=== PATIENT | male | born 1980 ===

== ENCOUNTER 2017-08-13 14:34 | Inpatient (IN) | payer MEDICAID, OTHER ==
--- NOTE | 2017-08-13 16:51 | RAD ---
HISTORY: psych COMPARISON: 01/08/2013 TECHNIQUE: Chest PA and lateral FINDINGS: LUNGS: No active pulmonary disease. PLEURA: No significant pleural effusion identified. No pneumothorax apparent. CARDIOVASCULAR: Normal. OSSEOUS STRUCTURES: No significant abnormalities. VISUALIZED UPPER ABDOMEN: Normal. OTHER FINDINGS: None. IMPRESSION: No active disease. No interval pathology noted
--- NOTE | 2017-08-13 18:44 | ED PDOC ---
HPI: Psych/Substance Abuse Time Seen by Provider: 08/13/17 16:20 Chief Complaint (Nursing): Psychiatric Evaluation Chief Complaint (Provider): Paranoid Schizophrenia ED Caveat: Psychotic Past Medical History Vital Signs: Last Vital Signs Temp 98.0 F 08/13/17 14:38 Pulse 93 H 08/13/17 14:38 Resp 16 08/13/17 14:38 BP 123/76 08/13/17 14:38 Pulse Ox 96 08/13/17 14:38 - Family History Family History: States: No Known Family Hx - Home Medications Home Medications: Ambulatory Orders Medication Instructions Recorded Benztropine [Cogentin] 2 mg PO Q12 08/13/17 Divalproex [Depakote DR (*BID*)] 750 mg PO Q12 08/13/17 Levothyroxine [Synthroid] 50 mcg PO DAILY 08/13/17 Risperidone [Risperdal] 3 mg PO Q12 08/13/17 cloZAPine [Clozaril] 300 mg PO Q12 08/13/17 levETIRAcetam [Keppra] 500 mg PO Q12 08/13/17 - Allergies Allergies/Adverse Reactions: Allergies Allergy/AdvReac Type Severity Reaction Status Date / Time No Known Allergies Allergy Verified 08/13/17 14:38 Review of Systems Psych: Negative for: Suicidal ideation (no homicidal ideation) Physical Exam - Reviewed Nursing Documentation Reviewed: Yes Vital Signs Reviewed: Yes - Physical Exam Appears: Positive for: Well, No Acute Distress Cardiovascular/Chest: Positive for: Chest Non Tender. Negative for: Edema, Gallop, Bradycardia, Tachycardia Respiratory: Positive for: Normal Breath Sounds. Negative for: Accessory Muscle Use, Crackles, Rales, Rhonchi, Stridor, Wheezing Pulses-Carotid (L): 2+ Pulses-Carotid (R): 2+ Pulses-Radial (L): 2+ Pulses-Radial (R): 2+ Gastrointestinal/Abdominal: Positive for: Normal Exam, Bowel Sounds, Soft. Negative for: Tenderness - Laboratory Results Result Diagrams: 08/19/17 08:36 08/13/17 18:24 - ECG O2 Sat by Pulse Oximetry: 96 Medical Decision Making Medical Decision Making: medical clearance protocol ordered prior to psych / crisis counseling CXR: (-) LABS: no findings of clinical significance Valproic Acid: (-) LOW Disposition - Clinical Impression Clinical Impression: Psychosis - Disposition Disposition Time: 09:00 Condition: GUARDED
[2017-08-13 18:49] LABS: BASO % 0.4 % (0.0-2.0); EOS # 0.1 K/uL (0.0-0.7); EOS % 1.4 % (0.0-4.0); HEMOGLOBIN 16.8 g/dL (12.0-18.0); LYMPH # 2.2 K/uL (1.0-4.3); LYMPH % 24.8 % (20.0-40.0); MEAN CELL VOLUME 85.9 fl (80.0-94.0); MEAN CORPUSCULAR HEMOGLOBIN 29.4 pg (27.0-31.0); MEAN CORPUSCULAR HGB CONC 34.2 g/dL (33.0-37.0); MEAN PLATELET VOLUME 10.4 fl (7.2-11.7); MONO # 0.7 K/uL (0.0-0.8); MONO % 7.5 % (0.0-10.0); NEUT # 5.9 K/uL (1.8-7.0); NEUT % 65.9 % (50.0-75.0); NRBC % 0.1 % (0.0-0.0); RBC 5.72 Mil/uL (4.40-5.90); RED CELL DISTRIBUTION WIDTH 13.5 % (11.5-14.5); WHITE BLOOD COUNT 8.9 K/uL (4.8-10.8)
[2017-08-13 18:51] LABS: ALB/GLOB RATIO 1.6 (1.0-2.1); ALBUMIN 4.6 g/dL (3.5-5.0); ALT/SGPT 74 U/L (21-72); AST/SGOT 50 U/L (17-59); BLOOD UREA NITROGEN 15 mg/dl (9-20); CALCIUM 9.9 mg/dL (8.4-10.2); GFR AFRICAN-AMERICAN > 60; GFR NON-AFRICAN AMERICAN > 60
[2017-08-13 19:42] LABS: URINE BACTERIA RARE (<OCC); URINE BILIRUBIN NEGATIVE (NEGATIVE); URINE BLOOD NEGATIVE (NEGATIVE); URINE CLARITY CLOUDY (Clear); URINE COLOR YELLOW (YELLOW); URINE GLUCOSE (UA) NEG (Normal); URINE LEUKOCYTE ESTERASE NEG Leu/uL (Negative); URINE PROTEIN NEGATIVE (NEGATIVE); URINE UROBILINOGEN 0.2-1.0 mg/dL (0.2-1.0)
[2017-08-13 20:04] LABS: BARBITURATES, UR NEGATIVE (NEGATIVE); BENZODIAZEPINES, UR NEGATIVE (NEGATIVE); OPIATES, UR NEGATIVE (NEGATIVE); PHENCYCLIDINE, UR NEGATIVE (NEGATIVE)
[2017-08-13] MEDS ORDERED: DiphenhydrAMINE 50 mg/ml Inj IM PRN (20:55)
[2017-08-13] MEDS ORDERED: Magnesium Hydroxide Susp 30 ml UD PO PRN (20:55)
--- NOTE | 2017-08-13 21:35 | PCM.BM ---
<Carolyn Boggs - Last Filed: 08/13/17 21:33> Treatment Plan Problems - Problems identified on initial assessmt Delusions Date Initiated: 08/13/17 Time Initiated: 21:33 Assessment reference: NA Status: Active Thought Process Date Initiated: 08/13/17 Time Initiated: 21:33 Assessment reference: NA Status: Active Auditory Hallucinations Date Initiated: 08/13/17 Time Initiated: 21:34 Assessment reference: NA Status: Active Treatment assets and liabiliti Patient Assests: cooperative, self-reliant, ADL independent, negotiates basic needs Patient Liabilities: poor support system, medical problems - Milieu Protocol Maintain good personal hygiene: daily Remind patient to perform daily oral care , daily Assist patient to perform ADL's, every shift Encourage regular showers Conduct patient checks and document Observation sheet: Q15 minutes Maintain personal safety: every shift Educate patient to report safety concerns to staff, every shift Monitor environment for contraband/sharps Medication safety: Monitor for expected outcome, potential side effects: every shift, Assess barriers to learning: every shift, Assess readiness for medication education: every shift <FredericJudit - Last Filed: 08/14/17 14:52> Treatment assets and liabiliti Patient Assests: adapts well, cooperative, self-reliant, ADL independent, good support system, negotiates basic needs Patient Liabilities: medical problems, other (chronic SD, hx of attempts) Family Contact Family involvement: Family/SO is involved Family contact: Patient agrees to contact, Other (real estate underwriter attempting to obtain family contact number) Family contact name: Benita Leonard(mother) ([phone]) Family contacted how many times per week?: 2 Family contact comment: French [employer] Folder placed call to patients mother, Benita Leonard ) to discuss precursors to pts admission and collect further collateral. Number inactive. The number above retrieved from medical records, as pt is unable to provide real estate underwriter with contact information for family. French [employer] Folder to continue attempts to contact pts family supports. - Outside Agency Agency 1 Care involvment: Following patient during stay, Information-sharing, Other Agency contact name: [facility] [place] [facility] Agency contact number: ([phone]) Agency 2 Care involvment: Following patient during stay, Information-sharing Agency contact name: [facility] Agency contact number: ([phone]) - Goals for Treatment Patient goals for treatment: Patient to continue stabilization on 3NP through medication management and group/supportive therapy. Patient to be encouraged to attend groups regularly to promote self-awareness, compliance, and improve insight, coping skills and self-esteem. Patient to be provided with referral for appropriate level of aftercare to reduce risk of future hospitalizations and ensure safety in the community. Discharge/Continuing Care - Education Needs Education Needs: Family Medication, Family Community resources, Family Aftercare Safety Plan, Patient Medication, Patient Coping Skills, Patient Anger Management skills, Patient Community resources, Patient Aftercare Safety Plan - Discharge Discharge Criteria: Tolerates medication w/o severe side effects, Free of Suicidal thoughts, Free of paranoid thoughts, Free of agitation, Normal sleep pattern, Ability to care for self, Reduction of target symptoms Discharge to:: Home, With Family, Other ([facility] [place]) <Jose Morales - Last Filed: 08/15/17 11:58> Discharge/Continuing Care - Additional Comments 08/15/17 11:58 Pt's speech was soft, slow and he appeared to be experiencing thought blocking. Pt reported he was feeling better and his sleep has improved. Pt denied allowing real estate underwriter to contact My at [facility] or any other staff at [facility]. Pt denied side-effects at this time. Dr. Villarreal explained that she would be raising pt's Clozaril. Pt then expressed that he hears his father's voice and other family members because he is a medium. - Treatment Team Participation Discussed with Family/SO: No Was Patient/Family/SO present at Treatment Team Meeting: Yes <Lexy Villarreal - Last Filed: 08/15/17 16:15> - Diagnosis (1) Psychosis Status: Acute Interventions: pharmacotherapy 08/15/17 16:14
[2017-08-13] MEDS: Divalproex 250 mg DR(BID formulation) PO SCH (22:25)
[2017-08-14] MEDS: Alum-Mag Hydrox-Simethicone Susp (30 mL) PO PRN ×2 (03:59→09:10)
[2017-08-14] MEDS: Levothyroxine 50 MCG TAB PO SCH (06:39)
[2017-08-14 07:21] LABS: T4 9.36 ug/dl (5.5-11.0)
[2017-08-14] MEDS: Divalproex 250 mg DR(BID formulation) PO SCH ×2 (09:09→17:27)
--- NOTE | 2017-08-14 11:32 | CARD ---
APPROVED REPORT EKG Measurement Heart [id number] <Conclusion> Normal sinus rhythm Nonspecific T wave abnormality Abnormal ECG
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
--- NOTE | 2017-08-14 15:00 | CP.PCM.CON ---
History of Present Illness - History of Present Illness History of Present Illness: 37 yo male with history of Schizophrenia admitted to psyche unit because of paranoia. Review of Systems - Review of Systems All systems: reviewed and no additional remarkable complaints except (aside from those mentioned above, 14 point system review were negative by me) Past Patient History - Past Social History Smoking Status: Never Smoked Alcohol: None Drugs: Denies - CARDIAC Hx Cardiac Disorders: Yes Hx Hypercholesterolemia: Yes Hx Hypertension: No - PULMONARY Hx Respiratory Disorders: No Hx Tuberculosis: No - NEUROLOGICAL Hx Neurological Disorder: Yes HX Cerebrovascular Accident: No Hx Seizures: Yes (epilepsy) - HEENT Hx HEENT Problems: No - RENAL Hx Chronic Kidney Disease: No - ENDOCRINE/METABOLIC Hx Endocrine Disorders: Yes Hx Hypothyroidism: Yes - HEMATOLOGICAL/ONCOLOGICAL Hx Blood Disorders: No Hx Cancer: No Hx Human Immunodeficiency Virus (HIV): No - INTEGUMENTARY Hx Dermatological Problems: No - MUSCULOSKELETAL/RHEUMATOLOGICAL Hx Musculoskeletal Disorders: No - GASTROINTESTINAL Hx Gastrointestinal Disorders: No - GENITOURINARY/GYNECOLOGICAL Hx Genitourinary Disorders: No Hx Sexually Transmitted Disorders: No - PSYCHIATRIC Hx Psychophysiologic Disorder: Yes - SURGICAL HISTORY Hx Surgeries: Yes Other/Comment: tendon repair and alleged brain surgery - ANESTHESIA Hx Anesthesia: Yes Hx Anesthesia Reactions: No Hx Malignant Hyperthermia: No Has any member of the family had a problem w/ anesthesia?: No Meds Allergies/Adverse Reactions: Allergies Allergy/AdvReac Type Severity Reaction Status Date / Time No Known Allergies Allergy Verified 08/13/17 14:38 - Medications Medications: Current Medications Acetaminophen (Tylenol 325mg Tab) 650 mg PO Q4 PRN PRN Reason: Pain, moderate (4-7) Al Hydrox/Mg Hydrox/Simethicone (Maalox Plus 30 Ml) 30 ml PO Q4 PRN PRN Reason: Dyspepsia Last Admin: 08/14/17 09:10 Dose: 30 ml Atorvastatin Calcium (Lipitor) 10 mg PO HS [facility] Last Admin: 08/13/17 22:26 Dose: 10 mg Benztropine Mesylate (Cogentin) 2 mg PO BID [facility] Last Admin: 08/14/17 09:10 Dose: 2 mg Clozapine (Clozaril) 300 mg PO DAILY [facility] Last Admin: 08/14/17 10:58 Dose: 300 mg Clozapine (Clozaril) 50 mg PO HS [facility] Diphenhydramine HCl (Benadryl) 50 mg IM Q6 PRN PRN Reason: Extrapyramidal S/S Unable PO Diphenhydramine HCl (Benadryl) 50 mg PO Q6 PRN PRN Reason: Extrapyramidal Symptoms Diphenhydramine HCl (Benadryl) 50 mg PO HS PRN PRN Reason: Sleep Last Admin: 08/13/17 23:19 Dose: 50 mg Divalproex Sodium (Depakote Dr(*Bid*)) 750 mg PO BID [facility] Last Admin: 08/14/17 09:09 Dose: 750 mg Docusate Sodium (Colace) 100 mg PO BID [facility] Last Admin: 08/14/17 09:10 Dose: 100 mg Haloperidol (Haldol) 5 mg PO Q4 PRN PRN Reason: Agitation Haloperidol Lactate (Haldol) 5 mg IM Q4 PRN PRN Reason: Agitation, Unable to Take PO Levetiracetam (Keppra) 500 mg PO BID [facility] Last Admin: 08/14/17 09:10 Dose: 500 mg Levothyroxine Sodium (Synthroid) 50 mcg PO DAILY@0630 [facility] Last Admin: 08/14/17 06:39 Dose: 50 mcg Lorazepam (Ativan) 2 mg IM Q4 PRN PRN Reason: Anxiety/Agitation,Unable PO Lorazepam (Ativan) 1 mg PO Q4 PRN PRN Reason: Anxiety/Agitation Magnesium Hydroxide (Milk Of Magnesia) 30 ml PO HS PRN PRN Reason: Constipation Risperidone (Risperdal Tab) 3 mg PO BID [facility] Last Admin: 08/14/17 09:10 Dose: 3 mg Physical Exam - Constitutional Appears: No Acute Distress, Other (tremelous) - Head Exam Head Exam: ATRAUMATIC - Eye Exam Eye Exam: absent: Scleral icterus - ENT Exam ENT Exam: Mucous Membranes Moist - Neck Exam Neck exam: Negative for: Meningismus - Respiratory Exam Respiratory Exam: absent: Rales, Wheezes, Respiratory Distress - Cardiovascular Exam Cardiovascular Exam: REGULAR RHYTHM, +S1, +S2 - GI/Abdominal Exam GI & Abdominal Exam: Soft. absent: Tenderness - Rectal Exam Rectal Exam: Deferred - Neurological Exam Neurological exam: Alert - Psychiatric Exam Psychiatric exam: Normal Affect - Skin Skin Exam: Dry, Intact Results - Vital Signs Recent Vital Signs: Last Vital Signs Temp 96.9 F L 08/14/17 09:00 Pulse 77 08/14/17 09:00 Resp 18 08/14/17 09:00 BP 111/75 08/14/17 09:00 Pulse Ox 99 08/13/17 20:18 - Labs Result Diagrams: 08/13/17 18:24 08/13/17 18:24 Labs: Laboratory Results - last 24 hr 08/13/17 08/13/17 08/13/17 18:24 18:24 19:10 WBC 8.9 RBC 5.72 Hgb 16.8 Hct 49.1 MCV 85.9 MCH 29.4 MCHC 34.2 RDW 13.5 Plt Count 209 MPV 10.4 Neut % (Auto) 65.9 Lymph % (Auto) 24.8 Whitman % (Auto) 7.5 Eos % (Auto) 1.4 Baso % (Auto) 0.4 Neut # (Auto) 5.9 Lymph # (Auto) 2.2 Whitman # (Auto) 0.7 Eos # (Auto) 0.1 Baso # (Auto) 0.0 Sodium 145 Potassium 3.4 L Chloride 100 Carbon Dioxide 26 Anion Gap 22 H BUN 15 Creatinine 1.1 Est GFR ( Amer) > 60 Est GFR (Non-Af Amer) > 60 Random Glucose 110 Hemoglobin A1c Calcium 9.9 Total Bilirubin 0.7 AST 50 ALT 74 H Alkaline Phosphatase 68 Total Protein 7.4 Albumin 4.6 Globulin 2.9 Albumin/Globulin Ratio 1.6 Triglycerides Cholesterol LDL Cholesterol Direct HDL Cholesterol Thyroxine (T4) TSH 3rd Generation Urine Color Yellow Urine Clarity Cloudy Urine pH 7.0 Ur Specific [place] 1.023 Urine Protein Negative Urine Glucose (UA) Neg Urine Ketones Trace Urine Blood Negative Urine Nitrate Negative Urine Bilirubin Negative Urine Urobilinogen 0.2-1.0 Ur Leukocyte Esterase Neg Urine RBC (Auto) 2 Urine Microscopic WBC 1 Urine Bacteria Rare Urine Opiates Screen Urine Methadone Screen Ur Barbiturates Screen Valproic Acid Ur Phencyclidine Scrn Ur Amphetamines Screen U Benzodiazepines Scrn U Oth Cocaine Metabols U Cannabinoids Screen Alcohol, Quantitative < 10 08/13/17 08/13/17 08/14/17 19:15 19:38 06:30 WBC RBC Hgb Hct MCV MCH MCHC RDW Plt Count MPV Neut % (Auto) Lymph % (Auto) Whitman % (Auto) Eos % (Auto) Baso % (Auto) Neut # (Auto) Lymph # (Auto) Whitman # (Auto) Eos # (Auto) Baso # (Auto) Sodium Potassium Chloride Carbon Dioxide Anion Gap BUN Creatinine Est GFR ( Amer) Est GFR (Non-Af Amer) Random Glucose Hemoglobin A1c Calcium Total Bilirubin AST ALT Alkaline Phosphatase Total Protein Albumin Globulin Albumin/Globulin Ratio Triglycerides 208 H Cholesterol 205 H LDL Cholesterol Direct 151 H HDL Cholesterol 34 Thyroxine (T4) 9.36 TSH 3rd Generation 3.67 Urine Color Urine Clarity Urine pH Ur Specific [place] Urine Protein Urine Glucose (UA) Urine Ketones Urine Blood Urine Nitrate Urine Bilirubin Urine Urobilinogen Ur Leukocyte Esterase Urine RBC (Auto) Urine Microscopic WBC Urine Bacteria Urine Opiates Screen Negative Urine Methadone Screen Negative Ur Barbiturates Screen Negative Valproic Acid < 10.0 L Ur Phencyclidine Scrn Negative Ur Amphetamines Screen Negative U Benzodiazepines Scrn Negative U Oth Cocaine Metabols Negative U Cannabinoids Screen Negative Alcohol, Quantitative 08/14/17 06:30 WBC RBC Hgb Hct MCV MCH MCHC RDW Plt Count MPV Neut % (Auto) Lymph % (Auto) Whitman % (Auto) Eos % (Auto) Baso % (Auto) Neut # (Auto) Lymph # (Auto) Whitman # (Auto) Eos # (Auto) Baso # (Auto) Sodium Potassium Chloride Carbon Dioxide Anion Gap BUN Creatinine Est GFR ( Amer) Est GFR (Non-Af Amer) Random Glucose Hemoglobin A1c 5.6 Calcium Total Bilirubin AST ALT Alkaline Phosphatase Total Protein Albumin Globulin Albumin/Globulin Ratio Triglycerides Cholesterol LDL Cholesterol Direct HDL Cholesterol Thyroxine (T4) TSH 3rd Generation Urine Color Urine Clarity Urine pH Ur Specific [place] Urine Protein Urine Glucose (UA) Urine Ketones Urine Blood Urine Nitrate Urine Bilirubin Urine Urobilinogen Ur Leukocyte Esterase Urine RBC (Auto) Urine Microscopic WBC Urine Bacteria Urine Opiates Screen Urine Methadone Screen Ur Barbiturates Screen Valproic Acid Ur Phencyclidine Scrn Ur Amphetamines Screen U Benzodiazepines Scrn U Oth Cocaine Metabols U Cannabinoids Screen Alcohol, Quantitative Assessment & Plan (1) Paranoia Status: Acute Comment: psyche is managing
[2017-08-15] MEDS: Levothyroxine 50 MCG TAB PO SCH (06:31)
[2017-08-15] MEDS: Divalproex 250 mg DR(BID formulation) PO SCH ×2 (09:32→17:19)
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
[2017-08-16] MEDS: Levothyroxine 50 MCG TAB PO SCH (06:26)
[2017-08-16] MEDS: Divalproex 250 mg DR(BID formulation) PO SCH ×2 (10:09→17:19)
[2017-08-16] MEDS: Alum-Mag Hydrox-Simethicone Susp (30 mL) PO PRN (11:50)
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
[2017-08-17] MEDS: Levothyroxine 50 MCG TAB PO SCH (06:47)
[2017-08-17] MEDS: Divalproex 250 mg DR(BID formulation) PO SCH ×2 (08:44→16:49)
[2017-08-18] MEDS: Levothyroxine 50 MCG TAB PO SCH (06:48)
--- NOTE | 2017-08-18 15:19 | PCM.PYCHPN ---
Psychiatric Progress Note - Psychiatric Progress Note Patient seen today, length of contact: pt evaluated discussed with team chart reviewed Patient Chief Complaint: I am feeling better today Problems Identified/Issues Discussed: pt seen on the unit calmer, more cooperative , participating in treatment and attending groups, pt continues to have somatic delusions, pt denied any current auditory hallucinations and non elicited, pt attending to personal hygiene [facility] davie chanel agreed to provide consent for social media analyst to contact outpatient program pt denied any chest pain, denied siallorhea , vital signs are stable and no noted side effects with the increase in the dose of clozaril pt denied suicidal or homicidal ideations, Medical Problems: unspecified number of psychiatric hospitalizations , last four years duration in [facility] DSM 5 Symptoms Update: schizophrenia Medication Change: No Medical Record Reviewed: Yes Mental Status Examination - Cognitive Function Orientation: Person, Place Memory: Impaired Attention: Poor Concentration: Poor Association: Loose Fund of Knowledge: Poor Decription of patient's judgement and insights: poor insight and judgement - Mood Mood: Anxious - Affect Affect: Constricted, Blunted - Speech Additional comments: not goal directed - Formal Thought Process Formal Thought Process: Delusions, Paranoia, Loosening of associations, Flight of ideas, Neologism - Suicidal Ideation Suicidal Ideation: No - Homicidal Ideation Homicidal Ideation: No Goal/Treatment Plan - Goal/Treatment Plan Need for Continued Stay: Severe depression anxiety, Discharge may exacerbated symptoms Progress Toward Problem(s) and Goals/Treatment Plan: continue depakote 750mg bid risperidone 3mg bid clozaril 300mg daily and 50mg qhs with plan to uptitrate gradually with follow up on WBC and ANC tomorrow moitor pt for any chest pain or changes in vital signs for clozaril possible side effects Estimated Date of D/C: 08/28/17
[2017-08-18] MEDS: Divalproex 250 mg DR(BID formulation) PO SCH ×2 (15:40→17:23)
[2017-08-19] MEDS: Levothyroxine 50 MCG TAB PO SCH (06:31)
[2017-08-19 09:25] LABS: BASO # 0.1 K/uL (0.0-0.2); BASO % 0.7 % (0.0-2.0); EOS # 0.2 K/uL (0.0-0.7); EOS % 2.5 % (0.0-4.0); LYMPH # 3.2 K/uL (1.0-4.3); LYMPH % 41.5 % (20.0-40.0); MEAN CELL VOLUME 87.5 fl (80.0-94.0); MEAN CORPUSCULAR HEMOGLOBIN 29.3 pg (27.0-31.0); MEAN CORPUSCULAR HGB CONC 33.5 g/dL (33.0-37.0); MEAN PLATELET VOLUME 10.7 fl (7.2-11.7); MONO # 0.7 K/uL (0.0-0.8); MONO % 8.7 % (0.0-10.0); NEUT # 3.6 K/uL (1.8-7.0); NEUT % 46.6 % (50.0-75.0); NRBC % 0.4 % (0.0-0.0); RBC 5.78 Mil/uL (4.40-5.90); RED CELL DISTRIBUTION WIDTH 13.9 % (11.5-14.5); WHITE BLOOD COUNT 7.6 K/uL (4.8-10.8)
[2017-08-19] MEDS: Divalproex 250 mg DR(BID formulation) PO SCH ×2 (09:59→17:18)
--- NOTE | 2017-08-19 16:12 | PCM.PYCHPN ---
Psychiatric Progress Note - Psychiatric Progress Note Patient seen today, length of contact: pt evaluated discussed with team chart reviewed Patient Chief Complaint: I will go back to my program Problems Identified/Issues Discussed: pt seen on the unit calmer, more cooperative , participating in treatment and attending groups, pt continues to have disorganized speech and thought process, pt denied any current auditory hallucinations and non elicited, pt denied any chest pain, denied siallorhea , vital signs are stable and no noted side effects with the increase in the dose of clozaril, wbc noted 7.6 pt denied suicidal or homicidal ideations, Medical Problems: unspecified number of psychiatric hospitalizations , last four years duration in [facility] 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 Medication Change: No Medical Record Reviewed: Yes Mental Status Examination - Cognitive Function Orientation: Person, Place Memory: Impaired Attention: Poor Concentration: Poor Association: Loose Fund of Knowledge: Poor Decription of patient's judgement and insights: poor insight and judgement - Mood Mood: Anxious - Affect Affect: Constricted, Blunted - Formal Thought Process Formal Thought Process: Delusions, Paranoia, Loosening of associations, Flight of ideas, Neologism - Suicidal Ideation Suicidal Ideation: No - Homicidal Ideation Homicidal Ideation: No Goal/Treatment Plan - Goal/Treatment Plan Need for Continued Stay: Severe depression anxiety, Discharge may exacerbated symptoms Progress Toward Problem(s) and Goals/Treatment Plan: continue depakote 750mg bid risperidone 3mg bid clozaril 300mg daily and 50mg qhs monitor pt for any chest pain or changes in vital signs for clozaril possible side effects Estimated Date of D/C: 08/28/17
[2017-08-19 19:50] VITALS: BMI 28.6
[2017-08-20] MEDS: Levothyroxine 50 MCG TAB PO SCH (06:49)
[2017-08-20] MEDS: Divalproex 250 mg DR(BID formulation) PO SCH ×2 (09:15→17:26)
--- NOTE | 2017-08-20 12:00 | PCM.PYCHPN ---
Psychiatric Progress Note - Psychiatric Progress Note Patient seen today, length of contact: pt evaluated discussed with team chart reviewed Patient Chief Complaint: I will go to the partial program Problems Identified/Issues Discussed: pt seen on the unit calmer, more cooperative , agreed to attend partial program on discharge participating in treatment and attending groups, pt continues to have disorganized speech and thought process, pt denied any current auditory hallucinations and non elicited, pt denied any chest pain, denied side effects of clozaril, pt denied suicidal or homicidal ideations, Medical Problems: unspecified number of psychiatric hospitalizations , last four years duration in [facility] DSM 5 Symptoms Update: schizophrenia Medication Change: No Medical Record Reviewed: Yes Mental Status Examination - Cognitive Function Orientation: Person, Place Memory: Impaired Attention: Poor Concentration: Poor Association: Loose Fund of Knowledge: Poor Decription of patient's judgement and insights: poor insight and judgement - Mood Mood: Anxious - Affect Affect: Constricted, Blunted - Speech Speech: Soft - Formal Thought Process Formal Thought Process: Delusions, Paranoia, Loosening of associations, Flight of ideas, Neologism - Suicidal Ideation Suicidal Ideation: No - Homicidal Ideation Homicidal Ideation: No Goal/Treatment Plan - Goal/Treatment Plan Need for Continued Stay: Severe depression anxiety, Discharge may exacerbated symptoms Progress Toward Problem(s) and Goals/Treatment Plan: continue depakote 750mg bid risperidone 3mg bid clozaril 300mg daily and 50mg qhs monitor pt for any chest pain or changes in vital signs for clozaril possible side effects Estimated Date of D/C: 08/28/17
[2017-08-20] MEDS: Alum-Mag Hydrox-Simethicone Susp (30 mL) PO PRN (21:58)
[2017-08-21] MEDS: Levothyroxine 50 MCG TAB PO SCH (06:23)
[2017-08-21] MEDS: Divalproex 250 mg DR(BID formulation) PO SCH ×2 (09:07→16:56)
[2017-08-21 09:16] VITALS: RESP 18
[2017-08-21 10:42] VITALS: O2SAT 96
--- NOTE | 2017-08-21 13:08 | PCM.PYCHPN ---
Psychiatric Progress Note - Psychiatric Progress Note Patient seen today, length of contact: pt evaluated discussed with team chart reviewed Patient Chief Complaint: I AM GOOD AND HAPPY Problems Identified/Issues Discussed: pt seen on the unit calmer, more cooperative , speech less disorganized, thought process more goal directed participating in treatment and attending groups, pt denied any current command auditory hallucinations and non elicited, pt , denied side effects of clozaril, denied suicidal or homicidal ideations, Medical Problems: unspecified number of psychiatric hospitalizations , last four years duration in [facility] 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 Medication Change: No Medical Record Reviewed: Yes Mental Status Examination - Cognitive Function Orientation: Person, Place Memory: Impaired Attention: Poor Concentration: Poor Association: Loose Fund of Knowledge: Poor Decription of patient's judgement and insights: poor insight and judgement - Mood Mood: Anxious - Affect Affect: Constricted, Blunted - Speech Speech: Soft - Formal Thought Process Formal Thought Process: Delusions, Paranoia, Loosening of associations, Flight of ideas, Neologism - Suicidal Ideation Suicidal Ideation: No - Homicidal Ideation Homicidal Ideation: No Goal/Treatment Plan - Goal/Treatment Plan Need for Continued Stay: Severe depression anxiety, Discharge may exacerbated symptoms Progress Toward Problem(s) and Goals/Treatment Plan: continue depakote 750mg bid risperidone 3mg bid clozaril 300mg daily and 50mg qhs monitor pt for any chest pain or changes in vital signs for clozaril possible side effects Estimated Date of D/C: 08/28/17
[2017-08-22] MEDS: Alum-Mag Hydrox-Simethicone Susp (30 mL) PO PRN (00:22)
[2017-08-22] MEDS: Levothyroxine 50 MCG TAB PO SCH (06:45)
[2017-08-22 09:20] VITALS: BP 131/82; PULSE 81; TEMP 96.4
[2017-08-22] MEDS: Divalproex 250 mg DR(BID formulation) PO SCH (10:12)
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
== END 2017-08-22 14:10 | disposition home or self-care (01) | DRG 885 ==
LOC: H.ER 14:34 → H.ERHOLD 19:52 → H.PSYCH 20:51
PROVIDERS: ADMIT Psychiatry & Neurology Psychiatry; ATTEND Psychiatry & Neurology Psychiatry
PROC: GZHZZZZ Group Psychotherapy (ICD-10-PCS; principal; 2017-08-13)
DX: F20.1 Disorganized schizophrenia (principal); G40.909 Epilepsy, unspecified, not intractable, without status epilepticus; E03.9 Hypothyroidism, unspecified; Z62.810 Personal history of physical and sexual abuse in childhood